=== PATIENT | female | born 1965 ===

== ENCOUNTER 2017-04-20 12:48 | Emergency (ER) | payer OTHER ==
[2017-04-20 13:24] VITALS: TEMP 97.8
--- NOTE | 2017-04-20 13:52 | ED PDOC ---
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 No fall or injury reported. Pain is localized to the heel/plantar aspect of foot and worse in the morning, with her first few steps. States she initially went to see a doctor at another hospital but never had x-rays due to lack of insurance. Was taking Ibuprofen sent to her from [facility] with minimal improvement; Last dose was 2 months ago. Otherwise: (-) knee pain, (-) numbness, (-) weakness (-) loss of sensation (-) rash. 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 - Family History Family History: States: Unknown Family Hx - Home Medications Home Medications: Ambulatory Orders Medication Instructions Recorded Meloxicam [Mobic] 15 mg PO DAILY #14 tab 04/20/17 - Allergies Allergies/Adverse Reactions: Allergies Allergy/AdvReac Type Severity Reaction Status Date / Time No Known Allergies Allergy Verified 04/20/17 13:21 Review of Systems ROS Statement: Except As Marked, All Systems Reviewed And Found Negative Musculoskeletal: Positive for: Foot Pain (bilateral pain at heels) Neurological: Negative for: Weakness, Numbness Physical Exam - Reviewed Nursing Documentation Reviewed: Yes Vital Signs Reviewed: Yes - Physical Exam Comments: GENERAL APPEARANCE: Patient is awake, alert, oriented x 3, in no acute distress. Ambulatory in ED with steady gait. SKIN: Warm, dry; (-) cyanosis. RESPIRATORY: lungs clear to auscultation bilaterally (-) rales (-) rhonchi (-) wheezing CARDIAC: (-) murmur LOWER EXTREMITY: (-) swelling, (-) ecchymosis. (+) tenderness to plantar aspect of bilateral hindfoot (-) pedal edema (-) overlying skin changes (-) evidence of infection; (-) calf tenderness; Full ROM of the ankles. Achilles tendon intact and nontender. Knees: (-) injury. CARDIOVASCULAR: (+) DP pulses 2+. NEUROLOGIC: (+) distal sensation. - ECG O2 Sat by Pulse Oximetry: 100 (RA) Pulse Ox Interpretation: Normal Medical Decision Making Medical Decision Making: Initial Impression: Plantar fasciitis Time: 13:49 Initial Plan: * X-Ray left foot * X-Ray right foot * Toradol 30 mg IM Discussed with patient limitations of x-ray imaging, however patient requests to have x-rays done. 1435 XRs reviewed and resulted as below. PROCEDURE: Right Foot Radiographs. HISTORY: foot pain COMPARISON: None. FINDINGS: BONES: No evidence of acute displaced fracture nor dislocation. The osseous structures appear intact with no cortical destructive changes. Small posterior and very tiny plantar calcaneal enthesophytes are present JOINTS: Minor hallux valgus deformity with on minimal DJD 1st MTP joint. SOFT TISSUES: Normal. OTHER FINDINGS: None. IMPRESSION: No evidence of acute displaced fracture nor dislocation. Small posterior and very tiny plantar calcaneal enthesophyte. PROCEDURE: Left Foot Radiographs. HISTORY: foot pain COMPARISON: Correlation made with concurrent radiographs of the right foot. FINDINGS: BONES: No evidence of acute displaced fracture nor dislocation. The osseous structures appear intact with no cortical destructive changes. Small plantar and posterior calcaneal enthesophytes are present. JOINTS: Minor hallux valgus deformity with minimal DJD 1st MTP joint. SOFT TISSUES: Normal. OTHER FINDINGS: None. IMPRESSION: No evidence of acute displaced fracture nor dislocation. Minimal hallux valgus deformity with DJD 1st MTP joint. Calcaneal enthesophytes as above. Plantar fasciitis x-ray 1440 On re-evaluation, patient reports improvement of symptoms. On exam, patient remains AAOx3, in no acute distress. On exam, neck is supple, lungs CTA, cardiac RRR, abdomen is soft and non-tender, neuro exam shows no focal findings. Ambulatory in ED with steady gait. Repeat BP: 120/70. VSS. Diagnostic results d/w the patient in great detail. Dx of plantar fasciitis, acute foot pain d/w the patient. Based on history, exam and diagnostic results plan will be for discharge and outpatient follow up. Patient counseled regarding diagnosis and advised to treat with NSAIDS at home. Advised to follow up with the clinic/podiatry for further evaluation. Return to the emergency room at any time for any new or worsening symptoms. Patient states she fully agrees with and understands discharge instructions. States that she agrees with the plan and disposition. Verbalized and repeated discharge instructions and plan. I have given the patient opportunity to ask any additional questions. Scribe Attestation: Documented by Halina Lane, acting as a scribe for Georgina Lara PA-C Provider Scribe Attestation: All medical record entries made by the Scribe were at my direction and personally dictated by me. I have reviewed the chart and agree that the record accurately reflects my personal performance of the history, physical exam, medical decision making, and the department course for this patient. I have also personally directed, reviewed, and agree with the discharge instructions and disposition. Disposition - Clinical Impression Clinical Impression: Plantar fasciitis, Foot pain, bilateral - Patient ED Disposition Is Patient to be Admitted: No Counseled Patient/Family Regarding: Studies Performed, Diagnosis, Need For Followup, Rx Given - Disposition Referrals: Rob Cai MD [Staff Provider] - Disposition: Routine/Home Disposition Time: 14:45 Condition: STABLE Prescriptions: Meloxicam [Mobic] 15 mg PO DAILY #14 tab Instructions: Heel Pain (Caused by Plantar Fasciitis), Plantar Fasciitis Exercises Forms: [email or web address] (Turkmen) Print Language: SLOVAK - POA Present On Arrival: None
--- NOTE | 2017-04-20 14:34 | RAD ---
PROCEDURE: Left Foot Radiographs. HISTORY: foot pain COMPARISON: Correlation made with concurrent radiographs of the right foot. FINDINGS: BONES: No evidence of acute displaced fracture nor dislocation. The osseous structures appear intact with no cortical destructive changes. Small plantar and posterior calcaneal enthesophytes are present. JOINTS: Minor hallux valgus deformity with minimal DJD 1st MTP joint. SOFT TISSUES: Normal. OTHER FINDINGS: None. IMPRESSION: No evidence of acute displaced fracture nor dislocation. Minimal hallux valgus deformity with DJD 1st MTP joint. Calcaneal enthesophytes as above. Plantar fasciitis x-ray
--- NOTE | 2017-04-20 14:35 | RAD ---
PROCEDURE: Right Foot Radiographs. HISTORY: foot pain COMPARISON: None. FINDINGS: BONES: No evidence of acute displaced fracture nor dislocation. The osseous structures appear intact with no cortical destructive changes. Small posterior and very tiny plantar calcaneal enthesophytes are present JOINTS: Minor hallux valgus deformity with on minimal DJD 1st MTP joint. SOFT TISSUES: Normal. OTHER FINDINGS: None. IMPRESSION: No evidence of acute displaced fracture nor dislocation. Small posterior and very tiny plantar calcaneal enthesophyte.
[2017-04-20 15:15] VITALS: BP 120/70; PULSE 65; RESP 20
[2017-04-20 15:16] VITALS: O2SAT 100
== END 2017-04-20 15:18 | disposition home or self-care (01) ==
LOC: H.ER 12:48
DX: M72.2 Plantar fascial fibromatosis (principal); M20.12 Hallux valgus (acquired), left foot
CPT/HCPCS: 73630; 96372; 99283; J1885

== ENCOUNTER 2017-06-06 15:31 | Emergency (ER) | payer OTHER ==
[2017-06-06 15:43] VITALS: BP 121/71; PULSE 60; RESP 20; TEMP 98.7; O2SAT 100
--- NOTE | 2017-06-06 16:09 | ED PDOC ---
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 She states she has history of bone spurs to both feet. Patient also reports she noticed the veins in her ankles and feet appeared more prominent than usual today, prompting her to come to the ED. Otherwise: (-) trauma, (-) injury, (-) fever, (-) numbness, (-) weakness, (-) decrease in ROM. PMD: provider TBD Past Medical History Reviewed: Historical Data, Nursing Documentation, Vital Signs Vital Signs: Last Vital Signs Temp 98.7 F 06/06/17 15:40 Pulse 60 06/06/17 15:40 Resp 20 06/06/17 15:40 BP 121/71 06/06/17 15:40 Pulse Ox 100 06/06/17 15:40 - Medical History PMH: Denies: Diabetes, HTN Other PMH: Bone spurs - Family History Family History: States: Unknown Family Hx - Immunization History Hx Tetanus Toxoid Vaccination: No Hx Influenza Vaccination: No Hx Pneumococcal Vaccination: No - Home Medications Home Medications: Ambulatory Orders Medication Instructions Recorded Meloxicam [Mobic] 15 mg PO DAILY #14 tab 04/20/17 Meloxicam [Mobic] 15 mg PO DAILY PRN #30 tab 06/06/17 - Allergies Allergies/Adverse Reactions: Allergies Allergy/AdvReac Type Severity Reaction Status Date / Time No Known Allergies Allergy Verified 04/20/17 13:21 Review of Systems ROS Statement: Except As Marked, All Systems Reviewed And Found Negative Constitutional: Negative for: Fever Musculoskeletal: Positive for: Foot Pain, Other (prominent veins) Neurological: Negative for: Weakness, Numbness Physical Exam - Reviewed Nursing Documentation Reviewed: Yes Vital Signs Reviewed: Yes - Physical Exam Comments: GENERAL APPEARANCE: Patient is awake, alert, oriented x 3, in no acute distress. SKIN: Warm, dry; (-) cyanosis. LOWER EXTREMITY: (+) varicose veins to medial aspect of both ankles. (+) tenderness to bilateral heels; Achilles tendon intact and nontender. Knee and ankle: (-) injury, (-) swelling, (-) ecchymosis, (-) point tenderness. CARDIOVASCULAR: (+) distal pulse. NEUROLOGIC: (+) distal sensation. - ECG O2 Sat by Pulse Oximetry: 100 (RA) Pulse Ox Interpretation: Normal Medical Decision Making Medical Decision Making: Prior records reviewed: Patient was seen in April for foot pain, x-rays were done showing (+) heel spur and patient was diagnosed with plantar fasciitis. Impression: Bone spurs, Varicose veins Based on history and exam plan will be for discharge home. Patient advised to wear compression socks and more comfortable footwear. Patient counseled regarding diagnosis. Advised to follow up with the podiatry clinic without fail. Advised to take medication as prescribed. Return to the emergency room at any time for any new or worsening symptoms. Patient states she fully agrees with and understands discharge instructions. States that she agrees with the plan and disposition. Verbalized and repeated discharge instructions and plan. I have given the patient opportunity to ask any additional questions. Scribe Attestation: Documented by Halina Lane, acting as a scribe for Xochitl Gomes PA-C. Provider Scribe Attestation: All medical record entries made by the Scribe were at my direction and personally dictated by me. I have reviewed the chart and agree that the record accurately reflects my personal performance of the history, physical exam, medical decision making, and the department course for this patient. I have also personally directed, reviewed, and agree with the discharge instructions and disposition. Disposition - Clinical Impression Clinical Impression: Plantar fasciitis, bilateral, Varicose veins of both lower extremities - Patient ED Disposition Is Patient to be Admitted: No Counseled Patient/Family Regarding: Diagnosis, Need For Followup, Rx Given - Disposition Referrals: Podiatry Clinic [Outside] Disposition: Routine/Home Disposition Time: 16:00 Condition: STABLE Additional Instructions: Thank you for letting us take care of you today. You were treated for varicose veins, heel pain, plantar fasciitis. The emergency medical care you received today was directed at your acute symptoms. Wear comfortable footwear and compression socks to prevent further development of varicose veins. If you were prescribed any medication, please fill it and take as directed. It may take several days for your symptoms to resolve. Return to the Emergency Department if your symptoms worsen, do not improve, or if you have any other problems. Please call one of the physicians/clinics you have been referred to that are listed on the Patient Visit Information form that is included in your discharge packet. Bring any paperwork you were given at discharge with you along with any medications you are taking to your follow up visit. Our treatment cannot replace ongoing medical care by a primary care provider (PCP) outside of the emergency department. Thank you for allowing the [facility] team to be part of your care today. 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
== END 2017-06-06 16:30 | disposition home or self-care (01) ==
LOC: H.ER 15:31
DX: M72.2 Plantar fascial fibromatosis (principal); I83.93 Asymptomatic varicose veins of bilateral lower extremities